=== PATIENT | male | born 1980 | race African-American/Black ===

== ENCOUNTER 2017-03-21 09:05 | Emergency (ER) | payer OTHER ==
[2017-03-21 09:13] VITALS: BP 148/99; PULSE 60; TEMP 98.5; BMI 37.3
[2017-03-21] MEDS ORDERED: MAG HYDROX/AL HYDROX/SIMETH 30 ML UNIT-DOSE CUP PO ONE (09:35)
[2017-03-21] MEDS ORDERED: FAMOTIDINE 20 MG/50 ML IVPB 50 ML IVPB ONE ×2 (09:35→09:48)
[2017-03-21] MEDS ORDERED: SODIUM CHLORIDE 1,000 ML IV STA ×2 (09:35→14:04)
--- NOTE | 2017-03-21 09:39 | PDOC ---
History of Present Illness - General History Source: Patient - History of Present Illness Timing/Duration: 4-6 hours Severity: severe Associated Symptoms: denies: chest pain, fever/chills, nausea/vomiting, shortness of breath <Maryann RichardsonNadjaVicki - Last Filed: 03/21/17 15:39> <Abisai Lopez - Last Filed: 03/24/17 09:28> - General Chief Complaint: Pain Stated Complaint: ABDOMINAL PAIN Time Seen by Provider: 03/21/17 09:32 Past History - Psycho/Social/Smoking Cessation Hx Suicidal Ideation: No Smoking History: Never smoked Information on smoking cessation initiated: No <Pedro Richardson - Last Filed: 03/21/17 15:39> <Abisai Lopez - Last Filed: 03/24/17 09:28> - Past Medical History Allergies/Adverse Reactions: Allergies Allergy/AdvReac Type Severity Reaction Status Date / Time No Known Allergies Allergy Verified 03/21/17 09:14 Home Medications: Ambulatory Orders Ibuprofen [Motrin -] 600 mg PO QID #28 tablet 03/21/17 Ondansetron HCl [Zofran] 4 mg PO Q8H #15 tablet 03/21/17 Tamsulosin HCl [Flomax] 0.4 mg PO DAILY #7 cap.er.24h 03/21/17 Review of Systems - Review of Systems Constitutional: No: Chills, Fever Respiratory: No: Shortness of Breath Cardiac (ROS): No: Chest Pain ABD/GI: Yes: Abdominal cramping. No: Blood Streaked Bowels, Constipated, Diarrhea, Nausea, Vomiting, Tarry Stools : No: Dysuria <Pedro Richardson - Last Filed: 03/21/17 15:39> *Physical Exam - Vital Signs Last Vital Signs Temp Pulse Resp BP Pulse Ox 98.5 F 60 18 148/99 99 03/21/17 09:11 03/21/17 09:11 03/21/17 09:11 03/21/17 09:11 03/21/17 09:11 - Physical Exam General Appearance: Yes: Appropriately Dressed, Mild Distress HEENT: positive: EOMI, Normal Voice. negative: Scleral Icterus (R), Scleral Icterus (L) Neck: positive: Supple Respiratory/Chest: positive: Lungs Clear, Normal Breath Sounds. negative: Respiratory Distress Cardiovascular: positive: Regular Rate, S1, S2 Gastrointestinal/Abdominal: positive: Normal Bowel Sounds, Tender, Soft. negative: Distended, Guarding, Rebound Musculoskeletal: negative: CVA Tenderness Extremity: positive: Normal Inspection Integumentary: positive: Dry, Warm Neurologic: positive: Fully Oriented, Alert, Normal Mood/Affect (sig ttp to epigastrium, NT to RUQ and no mcburneys) <Pedro Richardson - Last Filed: 03/21/17 15:39> - Vital Signs Last Vital Signs Temp Pulse Resp BP Pulse Ox 98.5 F 60 18 148/99 99 03/21/17 09:11 03/21/17 09:11 03/21/17 09:11 03/21/17 09:11 03/21/17 09:11 <JohnAbisai nguyen - Last Filed: 03/24/17 09:28> ED Treatment Course - LABORATORY CBC & Chemistry Diagram: 03/21/17 09:45 03/21/17 09:45 <TowerPedro - Last Filed: 03/21/17 15:39> - LABORATORY CBC & Chemistry Diagram: 03/21/17 09:45 03/21/17 09:45 - ADDITIONAL ORDERS Additional order review: 03/21/17 09:45 RBC 4.66 MCV 92.0 MCHC 33.8 RDW 12.5 MPV 6.7 L Neutrophils % 82.0 Lymphocytes % 13.2 Monocytes % 4.2 Eosinophils % 0.1 Basophils % 0.5 - Medications Given in the ED: ED Medications Discontinued Medications Generic Name Dose Route Start Last Admin Trade Name Kalyanq PRN Reason Stop Dose Admin Al Hydroxide/Mg Hydroxide 30 ml 03/21/17 09:35 03/21/17 09:56 Mylanta Oral Suspension - PO 03/21/17 09:36 30 ml ONCE ONE Administration Famotidine/Sodium Chloride 50 mls @ 100 mls/hr 03/21/17 09:35 03/21/17 09:57 Pepcid 20 Mg Premixed Ivpb - IVPB 03/21/17 10:04 100 mls/hr ONCE ONE Administration Sodium Chloride 1,000 mls @ 1,000 mls/hr 03/21/17 09:35 03/21/17 09:56 Normal Saline - IV 03/21/17 10:34 1,000 mls/hr ASDIR STA Administration Sodium Chloride 1,000 mls @ 1,000 mls/hr 03/21/17 14:04 03/21/17 14:20 Normal Saline - IV 03/21/17 15:03 1,000 mls/hr ASDIR STA Administration Ketorolac Tromethamine 30 mg 03/21/17 14:04 03/21/17 14:20 Toradol Injection - IVPUSH 03/21/17 14:05 30 mg ONCE ONE Administration Morphine Sulfate 2 mg 03/21/17 12:44 03/21/17 12:57 Morphine Injection - IVPUSH 03/21/17 12:45 2 mg ONCE ONE Administration Ondansetron HCl 4 mg 03/21/17 14:04 03/21/17 14:20 Zofran Injection IVPUSH 03/21/17 14:05 4 mg ONCE ONE Administration Ranitidine HCl 150 mg 03/21/17 10:46 03/21/17 11:18 Zantac - PO 03/21/17 10:47 150 mg ONCE ONE Administration Sucralfate 1 gm 03/21/17 10:46 03/21/17 11:18 Carafate - PO 03/21/17 10:47 1 gm NOW ONE Administration Tamsulosin HCl 0.4 mg 03/21/17 14:09 03/21/17 14:21 Flomax - PO 03/21/17 14:10 0.4 mg ONCE ONE Administration <Abisai Lopez - Last Filed: 03/24/17 09:28> Medical Decision Making - Medical Decision Making 03/21/17 09:36 36-year-old male denies any past medical history here with abdominal pain. Patient states he awoke with severe epigastric pain that feels like "a knot" as per pt, has been constant. No nausea, vomiting, change in bowel movements, fever or chills. No chest pain otherwise and no shortness of breath. Denies history of similar episode. No excessive alcohol or NSAID use. See exam Epigastric pain Possible gastritis -GI cocktail -labs r/o other source -reassess 03/21/17 10:59 Labs unremarkable. Patient continues to complain of significant pain at this time. Will continue to manage symptoms in ED 03/21/17 12:45 Pt continues to c/o significant pain at this time despite multiple attempts at pain control. Will get CT scan 03/21/17 14:06 4mm R UVJ stone mild to mod hydro on CT. Pt without flank pain or CVAT. 3+bld on ua, no LE or nitrite. Cr wnl. Toradol/IVF/zofran/flomax in progress/ Anticipate dc w/ meds and f/u 03/21/17 14:08 03/21/17 14:10 03/21/17 15:40 Pt reports that pain has improved and feel comfortable going home w/ meds. Will refer to urology <Pedro Richardson - Last Filed: 03/21/17 15:39> - Medical Decision Making 03/24/17 09:28 The patient was seen and evaluated in conjunction with JAYLA Richardson under my direct supervision, ancillary studies were reviewed. I agree with the plan as outlined by JAYLA Richardson . <Abisai Lopez - Last Filed: 03/24/17 09:28> *DC/Admit/Observation/Transfer <Pedro Richardson - Last Filed: 03/21/17 15:39> <Abisai Lopez - Last Filed: 03/24/17 09:28> Diagnosis at time of Disposition: Renal colic on right side - Discharge Dispostion Disposition: HOME Condition at time of disposition: Improved - Prescriptions Prescriptions: Tamsulosin HCl [Flomax] 0.4 mg PO DAILY #7 cap.er.24h Ibuprofen [Motrin -] 600 mg PO QID #28 tablet Ondansetron HCl [Zofran] 4 mg PO Q8H #15 tablet - Referrals Referrals: Carlos Butler MD [Staff Physician] - - Patient Instructions Printed Discharge Instructions: Kidney Stones -- Adult Additional Instructions: Take medications and drink plenty of fluids!!! Follow up with Dr Butler of urology in 1-2 weeks
[2017-03-21] MEDS ORDERED: MAG HYDROX/AL HYDROX/SIMETH 30 ML UNIT-DOSE CUP ONE (09:48)
[2017-03-21 09:52] LABS: BASOPHIL 0.5 % (0-2.0); EOSINOPHIL 0.1 % (0-4.5); MCH 31.1 pg (25.7-33.7); MCHC 33.8 g/dl (32.0-35.9); MEAN PLT VOLUME 6.7 fl (7.5-11.1); PLATELET COUNT 200 K/MM3 (134-434); RDW 12.5 % (11.9-15.9)
[2017-03-21 10:22] LABS: ALBUMIN 3.2 g/dl (3.4-5.0); ALK PHOS 49 U/L (45-117); ANION GAP 5 (8-16); BILIRUBIN,TOTAL 0.3 mg/dL (0.2-1.0); CALCIUM 9.1 mg/dL (8.5-10.1); CO2 29 mmol/L (21-32); CREATININE 0.8 mg/dL (0.7-1.3); GLUCOSE,RANDOM 93 mg/dL (74-106); SGOT/AST 15 U/L (15-37); SGPT/ALT 19 U/L (12-78); TOT PROT 6.6 g/dl (6.4-8.2)
[2017-03-21] MEDS ORDERED: RANITIDINE HCL 150 MG TABLET (FP) PO ONE (10:46)
[2017-03-21] MEDS ORDERED: SUCRALFATE 1 GM TABLET (FP) PO ONE (10:46)
[2017-03-21] MEDS ORDERED: SUCRALFATE 1 GM TABLET (FP) ONE (11:02)
[2017-03-21] MEDS ORDERED: RANITIDINE HCL 150 MG TABLET (FP) ONE (11:02)
[2017-03-21] MEDS ORDERED: morphine CARPU-JECT 4 MG/1 ML DISP.SYRIN ONE (12:44)
[2017-03-21] MEDS ORDERED: morphine CARPU-JECT 4 MG/1 ML DISP.SYRIN IVPUSH ONE (12:44)
[2017-03-21 12:51] LABS: URINE APPEARANCE CLEAR; URINE BILIRUBIN NEGATIVE (NEGATIVE); URINE BLOOD 3+ (NEGATIVE); URINE COLOR STRAW; URINE GLUCOSE (UA) NEGATIVE (NEGATIVE); URINE KETONE TRACE (NEGATIVE); URINE LEUK ESTERASE NEGATIVE (NEGATIVE); URINE NITRITE NEGATIVE (NEGATIVE); URINE PROTEIN NEGATIVE (NEGATIVE); URINE UROBILINOGEN NEGATIVE mg/dL (0.2-1.0)
[2017-03-21 13:01] LABS: URINE MUCUS RARE; URINE RBC 577 /hpf (0-3); URINE WBC 25 /hpf (3-5)
[2017-03-21 13:14] LABS: URINE MARIJUANA THC POSITIVE ng/ml (CUTOFF=50)
[2017-03-21] MEDS ORDERED: ONDANSETRON 4 MG/2 ML VIAL ONE (13:38)
[2017-03-21] MEDS ORDERED: ONDANSETRON 4 MG/2 ML VIAL IVPUSH ONE (14:04)
[2017-03-21] MEDS ORDERED: KETOROLAC TROMETHAMINE 30 MG/1 ML VIAL IVPUSH ONE (14:04)
[2017-03-21] MEDS ORDERED: KETOROLAC TROMETHAMINE 30 MG/1 ML VIAL ONE (14:08)
[2017-03-21] MEDS ORDERED: TAMSULOSIN HCL 0.4 MG CAP.ER.24H (FP) PO ONE (14:09)
[2017-03-21] MEDS ORDERED: TAMSULOSIN HCL 0.4 MG CAP.ER.24H (FP) ONE (14:14)
== END 2017-03-21 16:43 | disposition home or self-care (01) ==
LOC: JER 09:05
PROC: 3E0333Z Introduction of Anti-inflammatory into Peripheral Vein, Percutaneous Approach (ICD-10-PCS; principal; 2017-03-21)
PROC: 3E0333Z Introduction of Anti-inflammatory into Peripheral Vein, Percutaneous Approach (ICD-10-PCS; 2017-03-21)
PROC: 3E033GC Introduction of Other Therapeutic Substance into Peripheral Vein, Percutaneous Approach (ICD-10-PCS; 2017-03-21)
DX: N20.0 Calculus of kidney (principal)
CPT/HCPCS: 36415; 74177-TC; 80053; 80307; 81003; 81015; 83690; 85025; 96365; 96375; 99283-25